=== PATIENT | male | born 1995 | race Caucasian/White ===

== ENCOUNTER 2019-11-20 18:37 | Emergency (ER) | payer MEDICAID ==
[~2019-11-20] VITALS: Ht 175.3 cm; Wt 72.6 kg
[2019-11-20 18:53] VITALS: Ht 175.3 cm; Wt 72.6 kg
[2019-11-20 19:51] VITALS: BP 138/90
== END 2019-11-20 19:51 | disposition home or self-care (01) ==
LOC: ED 18:37
DX: F41.9 Anxiety disorder, unspecified (principal); Z76.0 Encounter for issue of repeat prescription
CPT/HCPCS: J7030